=== PATIENT | male | born 1990 | race Caucasian/White ===

== ENCOUNTER 2019-01-09 17:11 | Emergency (ER) | payer OTHER ==
[~2019-01-09] VITALS: Ht 188 cm; Wt 104.3 kg
[2019-01-09] MEDS ORDERED: Clonazepam2 MG PO (17:59)
[2019-01-09] MEDS ORDERED: KETO10 PO (17:59)
[2019-01-09] MEDS ORDERED: Neurontin 300300 MG PO (17:59)
== END 2019-01-09 18:08 | disposition home or self-care (01) ==
LOC: ER 17:11
DX: F41.0 Panic disorder [episodic paroxysmal anxiety] (principal); Z76.0 Encounter for issue of repeat prescription; F32.9 Major depressive disorder, single episode, unspecified; F20.9 Schizophrenia, unspecified; I10 Essential (primary) hypertension; F43.10 Post-traumatic stress disorder, unspecified
CPT/HCPCS: 99281

== ENCOUNTER 2019-01-12 13:23 | Emergency (ER) | payer OTHER ==
[~2019-01-12] VITALS: Ht 188 cm; Wt 104.3 kg
[~2019-01-12 13:23] MED LIST: Clonazepam2 MG PO; KETO10 PO; Neurontin 300300 MG PO
== END 2019-01-12 16:29 | disposition home or self-care (01) ==
LOC: ER 13:23
DX: J40 Bronchitis, not specified as acute or chronic (principal); M54.9 Dorsalgia, unspecified; G89.29 Other chronic pain; Z79.899 Other long term (current) drug therapy
CPT/HCPCS: 71046; 99283-25

== ENCOUNTER 2019-01-18 18:24 | Emergency (ER) | payer OTHER ==
[~2019-01-18] VITALS: Ht 188 cm; Wt 99.8 kg
[2019-01-18] MEDS ORDERED: Klonopin1 MG PO (19:47)
== END 2019-01-18 20:00 | disposition home or self-care (01) ==
LOC: ER 18:24
DX: Z76.0 Encounter for issue of repeat prescription (principal); F41.0 Panic disorder [episodic paroxysmal anxiety]; Z76.5 Malingerer [conscious simulation]; I10 Essential (primary) hypertension; F41.9 Anxiety disorder, unspecified; F20.9 Schizophrenia, unspecified; F43.10 Post-traumatic stress disorder, unspecified; F17.200 Nicotine dependence, unspecified, uncomplicated; Z88.6 Allergy status to analgesic agent; Z88.8 Allergy status to other drugs, medicaments and biological substances; Z79.899 Other long term (current) drug therapy
CPT/HCPCS: 99282

== ENCOUNTER 2019-01-20 00:18 | Emergency (ER) | payer OTHER ==
[~2019-01-20] VITALS: Ht 188 cm; Wt 99.8 kg
[~2019-01-20 00:18] MED LIST changes: +Klonopin1 MG PO
[2019-01-20] MEDS ORDERED: KETO10 PO (00:46)
[2019-01-21] MEDS ORDERED: Zofran4 MG PO (17:49)
== END 2019-01-20 01:29 | disposition home or self-care (01) ==
LOC: ER 00:18
DX: G89.29 Other chronic pain (principal); M54.9 Dorsalgia, unspecified; Z76.5 Malingerer [conscious simulation]; Z88.6 Allergy status to analgesic agent; Z88.1 Allergy status to other antibiotic agents; Z79.899 Other long term (current) drug therapy; F41.9 Anxiety disorder, unspecified; F43.10 Post-traumatic stress disorder, unspecified; I10 Essential (primary) hypertension; F20.9 Schizophrenia, unspecified; F17.200 Nicotine dependence, unspecified, uncomplicated
CPT/HCPCS: 96372; 99283-25; J1885

== ENCOUNTER 2019-01-21 17:17 | Emergency (ER) | payer OTHER ==
[~2019-01-21] VITALS: Ht 188 cm; Wt 99.8 kg
[2019-01-21] MEDS ORDERED: Zofran4 MG PO (17:49)
== END 2019-01-21 18:00 | disposition home or self-care (01) ==
LOC: ER 17:17
DX: G89.29 Other chronic pain (principal); M54.9 Dorsalgia, unspecified; R11.0 Nausea; F41.9 Anxiety disorder, unspecified; I10 Essential (primary) hypertension; F84.0 Autistic disorder; Z79.899 Other long term (current) drug therapy; Z87.891 Personal history of nicotine dependence
CPT/HCPCS: 99283

== ENCOUNTER 2019-01-23 17:25 | Emergency (ER) | payer OTHER ==
[~2019-01-23] VITALS: Ht 188 cm; Wt 99.8 kg
[~2019-01-23 17:25] MED LIST changes: +Zofran4 MG PO
== END 2019-01-23 18:47 | disposition home or self-care (01) ==
LOC: ER 17:25
DX: R05 Cough (principal); Z76.0 Encounter for issue of repeat prescription; Z88.6 Allergy status to analgesic agent; Z88.8 Allergy status to other drugs, medicaments and biological substances; F41.9 Anxiety disorder, unspecified; F43.10 Post-traumatic stress disorder, unspecified; I10 Essential (primary) hypertension; F20.9 Schizophrenia, unspecified
CPT/HCPCS: 99281